=== PATIENT | male | born 1995 | race Two or more races ===

== ENCOUNTER 2019-04-28 03:37 | Emergency (ER) | payer OTHER ==
[~2019-04-28] VITALS: Ht 180.3 cm; Wt 115.7 kg
[2019-04-28 07:25] VITALS: BP 152/80
[2019-04-28] MEDS ORDERED: TETANUS-DIPTH-ACEL PERTUSSIS 0.5ML SYRG IM ONE (08:00)
== END 2019-04-28 08:12 | disposition home or self-care (01) ==
LOC: ER 03:39
DX: S61.210A Laceration without foreign body of right index finger without damage to nail, initial encounter (principal); W26.9XXA Contact with unspecified sharp object(s), initial encounter; Y93.89 Activity, other specified; Y99.0 Civilian activity done for income or pay; Y92.69 Other specified industrial and construction area as the place of occurrence of the external cause
CPT/HCPCS: 12001; 90471; 90715

== ENCOUNTER 2019-05-28 14:04 | Emergency (ER) | payer SELFPAY ==
[~2019-05-28] VITALS: Ht 180.3 cm; Wt 115.7 kg
[2019-05-28 16:32] VITALS: BP 144/76
== END 2019-05-28 18:19 | disposition home or self-care (01) ==
LOC: ER 14:09
DX: K64.9 Unspecified hemorrhoids (principal); Z88.8 Allergy status to other drugs, medicaments and biological substances; F17.210 Nicotine dependence, cigarettes, uncomplicated